=== PATIENT | female | born 1940 | race Caucasian/White ===

== ENCOUNTER 2017-07-16 10:09 | Inpatient (IN) | payer OTHER ==
[2017-06-21 09:54] VITALS: BMI 43.0
--- NOTE | 2017-06-21 10:36 | PAT Medication Instructions ---
Service Date Jun 21, 2017. Current Home Medication List Bupropion (Wellbutrin Sr), 100 MG PO BID Calcium/Vitamin D (Os-Michael 500 Plus D), 1 TAB PO QAM Duloxetine Hcl (Cymbalta), 60 MG PO QAM Ferrous Sulfate (Iron), 1 TAB PO QAM Fish Oil ([place]-3), 1 CAP PO QAM Furosemide (Lasix), 60 MG PO QAM Furosemide (Lasix), 40 MG PO QPM Lisinopril (Zestril), 20 MG PO QAM Potassium Chloride (Micro-K Ext Rel), 40 MEQ PO QAM Prednisone Tab (Prednisone), 10 MG PO Q2D Probenecid (Benemid), 250 MG PO BID [Flax Seed Oil], 2 TABLETS PO QAM [Premarin Cream], 0.625 MG PV UD Medication Instructions For Your Scheduled Surgery - Hold the following medications 2 weeks prior to surgery: [Flax Seed Oil], 2 TABLETS PO QAM Fish Oil ([place]-3), 1 CAP PO QAM - Hold the following medications the morning of surgery: Lisinopril (Zestril), 20 MG PO QAM Furosemide (Lasix), 60 MG PO QAM Ferrous Sulfate (Iron), 1 TAB PO QAM Calcium/Vitamin D (Os-Michael 500 Plus D), 1 TAB PO QAM Potassium Chloride (Micro-K Ext Rel), 40 MEQ PO QAM [Premarin Cream], 0.625 MG PV UD - Take the following medications the morning of surgery with a sip of water: Duloxetine Hcl (Cymbalta), 60 MG PO QAM Bupropion (Wellbutrin Sr), 100 MG PO BID Probenecid (Benemid), 250 MG PO BID Prednisone Tab (Prednisone), 10 MG PO Q2D (if dose falls on the day of surgery) - Take the following medications as scheduled the night before surgery: Furosemide (Lasix), 40 MG PO QPM Bupropion (Wellbutrin Sr), 100 MG PO BID Probenecid (Benemid), 250 MG PO BID If you have any questions please call us at [phone] or [phone] or [phone]
[2017-06-21 11:28] LABS: BASO % 0.2 %; BASO ABS # 0.02 K/uL (0-0.2); COMPLETE YES; HEMATOCRIT 37.4 % (37-47); IG% 0.2 %; LYMPH % 12.4 %; LYMPH ABS # 1.01 K/uL (1.2-3.4); MEAN CELL VOLUME 92.8 fL (80-100); MEAN CORPUSCULAR HEMOGLOBIN 30.3 pg (25-34); MEAN CORPUSCULAR HGB CONC 32.6 g/dl (32-36); MEAN PLATELET VOLUME 10.2 fL (7.4-10.4); MONO % 5.3 %; NEUT % 78.9 %; PLATELET COUNT 215 K/uL (130-400); RED BLOOD COUNT 4.03 M/uL (4.2-5.4); WHITE BLOOD COUNT 8.13 K/uL (4.8-10.8)
[2017-06-21 11:35] LABS: URINE APPEARANCE CLOUDY (CLEAR); URINE BILIRUBIN NEG (NEG); URINE COLOR YELLOW; URINE EPITHELIAL CELL AUTO >30 /lpf (0-5); URINE NITRITE NEG (NEG); URINE SPECIFIC GRAVITY 1.025 (1.000-1.030); UROBILINOGEN NEG (NEG); ZZUR CULT IF INDIC CLEAN CATCH NO
[2017-06-21 11:41] LABS: INR 0.9 (0.9-1.1); MANUAL MICROSCOPIC REQUIRED? NO; PARTIAL THROMBOPLASTIN RATIO 1.1; PROTHROMBIN TIME (PATIENT) 9.7 SECONDS (9.0-12.0); REVIEW REQ? YES
[2017-06-21 12:06] LABS: ESTIMATED AVERAGE GLUCOSE 128 mg/dl; HA1C FLAG Normal (Normal)
[2017-06-21 12:10] LABS: BUN/CREATININE RATIO 16.2 (10-20); CREATININE 1.2 mg/dl (0.60-1.20); POTASSIUM 3.8 mmol/L (3.5-5.1)
--- NOTE | 2017-07-15 16:23 | HISTORY & PHYSICAL EXAMINATION ---
DATE OF ADMISSION: 07/16/2017 CHIEF COMPLAINT: Chronic right knee pain. HISTORY OF PRESENT ILLNESS: This is a 77-year-old female patient of Dr. Khan, complaining of chronic knee pain. She has had a partial knee replacement in the past and has sustained chronic pain without response to conservative treatment including prednisone and cortisone. She now wishes to proceed with a right knee revision partial arthroplasty to total knee arthroplasty. PAST MEDICAL HISTORY: Hypertension, hypercholesterolemia, chronic cough, sleep apnea with the use of CPAP, muscle disease, myasthenia gravis, osteoarthritis, acid reflux, hiatal hernia, obesity, kidney disease. SOCIAL HISTORY: Nonsmoker, nondrinker. PAST SURGICAL HISTORY: Hysterectomy, gallbladder, breast reduction, both knees and 1 ankle. FAMILY HISTORY: Noncontributory. REVIEW OF SYSTEMS: The patient complains of chronic right knee pain, otherwise denies any shortness of breath, chest pain, nausea, vomiting or joint complaints. MEDICATIONS: Include estrogen, Premarin 0.625 mg as needed 2-3 times per week, prednisone 10 mg daily, bupropion 100 mg b.i.d., furosemide 40 mg b.i.d., calcium with cholecalciferol 600/400 daily, probenecid 500 mg half a tablet b.i.d., lisinopril 20 mg daily, potassium chloride 10 mEq 4 tablets daily , omega-3 fatty acids daily, Cymbalta 60 mg daily, ferrous sulfate 325 daily, flax seed oil daily. ALLERGIES: INCLUDE ALLOPURINOL, AMOXICILLIN, LYRICA, SULFA, VIOXX. PHYSICAL EXAMINATION: GENERAL: Well-developed, well-nourished 77-year-old female in no acute distress. She is alert and oriented x3 and pleasant. HEENT: Normocephalic, atraumatic. Extraocular motions are intact. Pupils are equal and reactive to light. HEART: Regular rate and rhythm, no murmurs appreciated. LUNGS: Clear. ABDOMEN: Soft, nontender, bowel sounds present. EXTREMITIES: Right knee reveals no real effusion. There is no erythema or drainage. There is no sign of infection. She has painful range of motion in the knee itself. She has medial tenderness. She has 5/5 strength. NEUROLOGIC: Neurovascularly, she is intact in her right lower extremity. DIAGNOSES: Right knee chronic pain since a partial arthroplasty in the past. She also has a history of hypertension, hypercholesterolemia, chronic cough, sleep apnea with the use of CPAP, myasthenia gravis, osteoarthritis, acid reflux, hiatal hernia, obesity, chronic kidney disease. PLAN: The patient was advised of her diagnosis. Indications, risks, benefits, and postop course have all been reviewed. The patient wished to proceed with a right revision partial arthroplasty to total knee arthroplasty. Necessary consent forms, preoperative testing and clearances will be obtained. SAMMIE
[2017-07-16] VITALS (7 sets, daily range): BP systolic 124–148; BP diastolic 69–92; PULSE 74–96; TEMP 36.3–37; O2SAT 93–97; Ht 154.9 cm; Wt 103.8 kg
[~2017-07-16] VITALS: Ht 154.9 cm; Wt 103.8 kg
[2017-07-16] MEDS: TRANEXAMIC ACID INJ 1,000 MG in SODIUM CHLORIDE 0.9% 100ML 100 ML IV SCH ×2 (06:30→13:20)
[~2017-07-16 10:09] MED LIST: ACETAMINOPHEN 500 MG TAB PO SCH; BUPIVACAINE 0.25% 30 ML VIAL ONE; BUPIVACAINE 0.5 % 5 MG/1 ML PF 10ML VIAL ONE; BUPR100T8 PO; CALC500C70 PO; CEFAZOLIN 2000 MG/60 ML D5W 60 ML IV SCH; CeleBREX 200 MG CAP PO SCH; DEXAMETHASONE 4 MG TAB PO SCH; DEXAMETHASONE SOD INJ 4 MG/ML VIAL ONE; DULO60CA44 PO; FAMOTIDINE 20 MG TAB PO SCH; FENTANYL CITRATE INJ 50 MCG/1 ML 2 ML VIAL ONE; FERR1TAB23 PO; FLAX SEED OIL PO; FRS/40 PO; GABAPENTIN 300 MG CAP PO SCH; LACTATED RINGER'S 1000ML 1,000 ML IV SCH; LACTATED RINGER'S 1000ML 500 ML IV ONE; LISI-725 PO; METOCLOPRAMIDE HCL 10 MG TAB PO SCH; MIDAZOLAM HCL 1 MG/ML 2ML VIAL ONE; OMEG10007 PO; POTA10CA28 PO; PRED10TA PO; PREMARIN CREAM PV; PROB500T8 PO; ROPIVACAINE 5MG/ML 30 ML 150 MG, BUPIVACAINE/EPINEPHR 0.5% MPF 30 ML, KETOROLAC TROMETH... INFIL SCH
[2017-07-16] MEDS: LACTATED RINGER'S 1000ML 1,000 ML IV SCH ×2 (10:52→11:06)
--- NOTE | 2017-07-16 11:04 | History & Physical Bridge Note ---
H&P Re-Evaluation Bridge Note: I have examined the patient, reviewed the History & Physical and in the interval since the performance of the History & Physical I have noted the following changes of clinical significance: No changes noted
[2017-07-16] MEDS ORDERED: POVIDONE-IODINE OP SOLN 30 ML BTL ONE (11:30)
[2017-07-16] MEDS ORDERED: ORTHO JOINT ANESTHETIC ONE (11:30)
[2017-07-16] MEDS ORDERED: BACITRACIN 50000 UNIT VIAL ONE (11:30)
[2017-07-16] MEDS ORDERED: FENTANYL CITRATE INJ 50 MCG/1 ML 2 ML VIAL IV PRN (12:30)
[2017-07-16] MEDS ORDERED: ATROPINE SULFATE 0.1 MG/ML 5ML SYR IV PRN (12:30)
[2017-07-16] MEDS ORDERED: ONDANSETRON INJ 2 MG/ML 2 ML VIAL IV PRN ×2 (12:30→16:15)
[2017-07-16] MEDS ORDERED: MEPERIDINE HCL 25 MG/ML CARP IV PRN (12:30)
[2017-07-16] MEDS ORDERED: LABETALOL HCL IV 5 MG/ML 20ML IV PRN (12:30)
[2017-07-16] MEDS ORDERED: EpHEDrine SULFATE INJ 50 MG/ML AMP IV PRN (12:30)
[2017-07-16] MEDS ORDERED: HYDROmorphone INJ 1 MG/ML SYR IV PRN (12:30)
[2017-07-16] MEDS ORDERED: VANCOMYCIN HCL 1000MG/20ML VIAL ONE (13:55)
[2017-07-16] MEDS ORDERED: MIDAZOLAM HCL 1 MG/ML 2ML VIAL ONE ×2 (14:10→15:32)
[2017-07-16] MEDS ORDERED: PROPOFOL IV EMULSION 10 MG/ML 20 ML VIAL IV ONE (14:22)
[2017-07-16] MEDS ORDERED: LABETALOL HCL IV 5 MG/ML 20ML IV ONE (14:37)
[2017-07-16] MEDS ORDERED: EpHEDrine SULFATE 50MG/5ML SYR ONE (15:26)
[2017-07-16] MEDS ORDERED: PHENYLEPHRINE 100MCG/ML 5ML SYR ONE (15:26)
[2017-07-16] MEDS ORDERED: ALUMINUM/MAGNESIUM/SIMETH (MAALOX MAX) 30 ML UDC PO PRN (16:15)
[2017-07-16] MEDS ORDERED: OXYCODONE HCL IR 5 MG TAB (IMMEDIATE RELEASE) PO PRN (16:15)
[2017-07-16] MEDS ORDERED: BISACODYL 10 MG SUPP PR PRN (16:15)
[2017-07-16] MEDS ORDERED: MoRPHine SULFATE 4 MG/ML 1 ML CARP\\VIAL IV PRN (16:15)
[2017-07-16] MEDS ORDERED: MoRPHine SULFATE 2 MG/ML CARP IV PRN (16:15)
[2017-07-16] MEDS ORDERED: MAGNESIUM HYDROXIDE SUSP 30 ML UDC PO PRN (16:15)
--- NOTE | 2017-07-16 16:30 | [facility] Post Operative Brief Note ---
Immediate Operative Summary Operative Date Jul 16, 2017. Pre-Operative Diagnosis chronic right knee pain,lateral compartment oa end stage s/p partial replacement Post-Operative Diagnosis same Procedure(s) Performed RIGHT KNEE REVISION PARTIAL ARTHROPLASTY TO TOTAL KNEE ARTHROPLASTY FEMORAL AND TIBIAL COMPAONENTS AND LATERAL RELEASE,ITB release.placement ANTIBIOTIC BEADS Surgeon Dr. Ruiz Gaston Gasoline Service Attendant Surgeon(s) Dolly Nelson PA-C Estimated Blood Loss 10ml Findings grade 4 lateral compartment oa and no loosening of components Deuce partial replacement Specimens Microbiology: 1- routine per Dr. Gaston -Right Knee Synovial Joint Fluid -gram stain -routine culture and sensitivity - anaerobic/aerobic 2. routine per Dr. Gaston -Membrane under right femoral component -gram stain -anerobic/aerobic -routine culture and sensitivity 3.routine per Dr. Gaston -membrane under right tibial component -gram stain -anerobic/aerobic -routine culture and sensitivity A. Right Knee Explants B. Right Knee Bone and Tissue Drains 2 hemovac Anesthesia spinal sedation orthomix Complication(s) None Disposition Recovery Room / PACU
--- NOTE | 2017-07-16 17:10 | Anesthesiology Progress Note ---
Anesthesia Post Op Note Date & Time Jul 16, 2017 at 17:10 Vital Signs Pain Intensity: 5 Vital Signs Past 12 Hours Date Time Temp Pulse Resp B/P (MAP) Pulse Ox O2 Delivery O2 Flow Rate FiO2 07/16/17 16:55 82 26 145/76 98 Nasal Cannula 2 07/16/17 16:45 83 25 141/79 98 Nasal Cannula 2 07/16/17 16:35 85 25 150/78 98 Oxymask 10 07/16/17 16:28 36.5 90 25 141/85 96 Oxymask 10 07/16/17 10:38 37 96 18 148/92 95 Room Air Notes Mental Status: alert / awake / arousable, participated in evaluation Pt Amnestic to Procedure: Yes Nausea / Vomiting: adequately controlled Pain: adequately controlled Airway Patency, RR, SpO2: stable & adequate BP & HR: stable & adequate Hydration State: stable & adequate Neuraxial Anesthesia: was administered, sensory block is resolving Anesthetic Complications: no major complications apparent
--- NOTE | 2017-07-16 17:41 | DIAGNOSTIC IMAGING REPORT ---
RIGHT KNEE 1 OR 2 VIEWS ROUTINE CLINICAL HISTORY: 77 years-old Female presenting with postop right knee. TECHNIQUE: Frontal and lateral views of the right knee were obtained. COMPARISON: None. FINDINGS: Postsurgical changes of total right knee arthroplasty with patellar resurfacing. Numerous small round radiodense foreign bodies in the joint space most likely medication impregnated beads. No malalignment or acute fracture. A surgical drain and skin barbra noted. Expected intra-articular gas. IMPRESSION: Expected postoperative appearance status post total right knee arthroplasty with patellar resurfacing. Electronically signed by: Cl Moulton M.D. 07/16/2017 5:40 PM Dictated Date/Time: 07/16/2017 5:39 PM
[2017-07-16] MEDS: D5W AND 1/2NSS + 20MEQ KCL 1,000 ML IV SCH (18:21)
[2017-07-16] MEDS: FERROUS GLUCONATE 324 MG TAB PO SCH (18:23)
[2017-07-16] MEDS: FUROSEMIDE 40 MG TAB PO SCH (18:36)
[2017-07-16] MEDS: ACETAMINOPHEN 500 MG TAB PO SCH (19:32)
[2017-07-16] MEDS: OXYCODONE HCL 10 MG TABCR (OXYCONTIN) PO SCH (20:50)
[2017-07-16] MEDS: SENNA 8.6 MG TAB PO SCH (20:51)
[2017-07-16] MEDS: BuPROPion SR 100 MG TABCR PO SCH (20:51)
[2017-07-16] MEDS: ASPIRIN 81 MG ECTAB PO SCH (20:52)
[2017-07-16] MEDS: DOCUSATE SODIUM 100 MG CAP PO SCH (20:52)
[2017-07-16] MEDS ORDERED: FUROSEMIDE 40 MG TAB PO SCH (21:00)
[2017-07-16] MEDS: PROBENECID 500 MG TAB PO SCH (21:22)
--- NOTE | 2017-07-16 21:26 | OPERATIVE REPORT ---
DATE OF OPERATION: 07/16/2017 INDICATION FOR PROCEDURE: The patient is a 77-year-old female patient of Dr. Kings Shepherd. She had previously had a Deuce partial bicompartmental knee replacement of the right knee. She also had a total knee replacement of the left knee. The right knee was initially doing fairly well, got progressively painful over the time due to the lateral compartment osteoarthritis. Now she has [id number] in the lateral compartment. She has failed all conservative management and wants to proceed with revision of this replacement to a total knee replacement. There is no sign of infection in her knee and there is no evidence of loosening of the components and reason for the revision is progressive lateral compartment DJD, now [id number]. PREOPERATIVE DIAGNOSIS: End-stage osteoarthritis, right knee lateral compartment, status post a bicompartmental total knee arthroplasty of the right knee. POSTOPERATIVE DIAGNOSIS: Same. PROCEDURE: Revision of a bicompartmental partial knee replacement to a total knee replacement and placement of antibiotic beads and superficial wound VAC. SURGEON: Dr. Gaston. FULL TIME BABYSITTER: JOAQUINA Simpson. ANESTHESIA: Spinal sedation, Orthomix. OPERATIVE PROCEDURE: The patient was taken to the operating under spinal sedation. She was placed supine on the operating room table. Pneumatic tourniquet was placed about her right upper thigh. Her right lower extremity was examined under anesthesia. The patient had a slight flexion contracture. She had flexion to 125 degrees. She had a valgus knee, marked [id number] crepitation in the lateral compartment. Right lower extremity was prepped and draped with ChloraPrep. Leg was elevated, exsanguinated with Esmarch bandage. Pneumatic tourniquet was raised to 300 mmHg. An anterior incision made across the knee through her previous scar. Scar demonstrates she had some widening of the scar at the most proximal aspect due to the previous wound healing issues there. She otherwise had a good looking incision. I used a previous scar for incision, extended it slightly distal and proximal for a little more exposure for the revision. Subcutaneous tissues were dissected down to the fascia. They were reflected off the fascia. Incision was made through the medial retinaculum and extended up in the mid third of the quadriceps tendon and extended down to the medial tibial tubercle. Intra-articular findings demonstrated scar tissue of the infrapatellar fat pad, lateral compartment osteophytes which were large and significant, lateral femoral condyle and tibia were completely down to [id number]. There were still some osteophytes that had formed around some of the components and other parts of the knee as well. The ACL had degenerative tearing, the PCL was still intact and there were some remnants of the medial menisci posteriorly and there were some new osteophytes around the posteromedial component. The patella component was solid. The femoral component was solid and the tibial component in the medial compartment was completely solid without any micromotion or any evidence of loosening. There was no evidence of any infection clinically. We did obtain cultures. The attention was first taken to exposure at which time, the scarred infrapatellar fat pad was resected. It released some of the capsule around the medial tibial plateau to expose the medial component. Some of the osteophytes around the component were resected. Then a partial synovectomy was performed in the gutters and the suprapatellar pouch area. The synovial bands in the lateral gutter were released. The dorsum thickened synovium between the IT band and the femoral condyles so possibly, there was some IT band symptoms going on in that area and this synovium was resected to the IT band level. The femoral component was then removed by using the ultrasound device. Cement was melted with paddle-type blade under the edges of the component laterally, superiorly, medially around the medial component and the posterior flange of the medial condyle. Then we were able to loosen the component by using a bone tamp and removing the femoral component. There was no significant bone loss. No evidence of any inflammation underneath the femoral component. I did take some of the membrane and sent it for frozen sections. Some of the old cement was removed. Some of the rimming osteophytes around the components and edges of the condyle were removed. Then we did take the tibial polyethylene off the medial component. The tibial component was still firmly attached. We had to use the Ultra-Drive ultrasound device again and removed the cement around the tibial component and removed it with stacked osteotomes. Then any cement from underlying the implant was removed. Then the femur was exposed further. Intramedullary drill hole was made into the canal. The guide latrice was placed into the femoral canal. The distal femoral cutting guide was placed in 5 degrees of valgus cut. We had to do a +2 cut on the femur, so we can get a skimmed cut on the previously cut medial femoral condyle. I made the distal femoral cut. Then we placed the alignment guide in position on the end of the femur. We had to match the epicondylar axis due to the bone loss of the posteromedial femoral condyle from the previous implant being removed from that area. We made the rotation so that the posterior cut on the medial side aligned up with the the previously cut femoral condyle. We matched the epicondylar axis. This was pinned in position and the femur was sized for a 3 femoral component, which was similar to the total knee replacement on her opposite knee. We will double check with a cut device to make sure our external rotation of the guide was flush with the anterior cut previously made on the femur. After the appropriate drill holes were made for the 5-1 cutting block, the 5-1 cutting block was placed. The anterior, posterior and chamfer cuts were made. Then attention was taken to the tibia which was subluxed. I felt we could do a primary tibial component if we made the cut flush with the previous component of the medial side of the tibial plateau alignment where the component was removed from with just skim cutting that area and then taking more off the lateral side without using an augment. So we went ahead and I used the external tibial cutting guide, aligned it in position, placed them slightly more in flexion on the guide and then went ahead and made a proximal tibial cut. Then we used the laminar collect on delivery clerk to assess ligamentous balance. There was a little more laxity medial than lateral, so we did a posterolateral release to balance the ligaments. I also had to release some of the IT band which was tight on the lateral side. After that was completed, then the 2 tibial trial was externally rotated in line with the tibial tubercle, pinned in position. The punch for the stem was used. Then the 3 femoral trial was inserted, centered. The notch cutting devices were used. A collet was placed. I felt that an 18 constrained trial gave the best range of motion and stability. We did try 21, which could get her out to full extension, but it was tight in flexion on the lateral side and I felt this was too tight with regard to flexion. The 18 constrained component appeared to fit appropriately and gave stability through full motion. Patellar tracking was assessed, but the patella did slightly track lateral and so I did a formal lateral release leaving the synovium intact and leaving the lateral geniculate intact. The patella tracked centrally at this time. Then the trials removed and the anesthetic cocktail was injected per protocol. The knee was copiously irrigated with pulsatile lavage antibiotic solution and bacitracin. The final components were then cemented with Palacos G cement. The final components were the [employer] 2.0 size 3 Oxinium femoral component, the 2 primary tibial baseplate. We used an 18 constrained polyethylene tibial insert and the patella was the patient's bone patella from the last procedure which was stable and in good position. We used Betadine soaked while the cement cured. After the cement cured, the knee was again copiously irrigated with pulsatile lavage antibiotic solution and bacitracin. Two drains were brought out laterally. We placed Stimulan antibiotic beads with vancomycin 1 gram some sprinkled in the gutters and the suprapatellar pouch prior to the closure which was performed with [id number] #1 Vicryl sutures. The knee was taken through the range of motion and the repair was secured. The patella tracked centrally. Then the more beads were placed in the subcutaneous area and the subcutaneous tissues were closed with interrupted Vicryl sutures and then the skin was closed with barbra. Superficial wound VAC was applied and the patient tolerated the procedure well. JOAQUINA Simpson, who functioned as my first coat sander through the entire procedure. She assisted in leg positioning, prepping, draping, soft tissue retraction, instrument management and she performed the fascial, subcutaneous and skin closure and will participate in the postoperative care of the patient. I attest to the content of the Intraoperative Record and any orders documented therein. Any exceptions are noted below. SAMMIE
[2017-07-16] MEDS: CEFAZOLIN IV 2,000 MG in DEXTROSE 5% 50ML 50 ML IV SCH (21:30)
--- NOTE | 2017-07-16 22:20 | Medical Consult ---
Consultation Date of Consultation: Jul 16, 2017. Attending Physician: Ruiz Gaston M.D. Reason for Consultation: Post Op Medical Management History of Present Illness 77 year old female who is s/p right TKA today by Dr. Gaston. Patient has history of a partial right knee arthroplasty however has been having increasing right knee pain, failed outpatient conservative measures and therefore presented for the planned procedure today. Post operatively the patient is doing well. She reports her pain is well controlled. She denies any numbness to the BLLE. She denies chest pain and shortness of breath. No lightheadedness, dizziness, or diaphoresis. No abdominal pain, nausea, or vomiting. She reports she has not voided yet since surgery. Past Medical/Surgical History Medical Problems: (1) Arthritis Status: Chronic (2) CKD (chronic kidney disease), stage III Status: Chronic (3) Depression with anxiety Status: Chronic (4) Gout Status: Chronic (5) HLD (hyperlipidemia) Status: Chronic (6) HTN (hypertension) Status: Chronic (7) Myasthenia gravis Status: Chronic (8) BENITA (obstructive sleep apnea) Status: Chronic (9) Spinal stenosis Status: Chronic Surgical Problems: (1) H/O bilateral breast reduction surgery Status: Chronic (2) History of hysterectomy Status: Chronic (3) History of total left knee replacement Status: Chronic (4) Hx of cholecystectomy Status: Chronic (5) S/P surgical manipulation of ankle joint Status: Chronic Family History Hypertension BROTHER Stroke FATHER Social History Smoking Status: Never Smoker Alcohol Use: none Allergies Coded Allergies: Unclassified Drugs (Verified Allergy, Mild, ANTIBIOTICS-SOB; JOINT PAIN ( CAN TAKE CEPHLOSPORINS), 07/16/17) CEFAZOLIN OK; MOSTLY ORAL ANTIBIOTICS CAUSE PROBLEMS Allopurinol (Verified Allergy, Unknown, RASH, 07/16/17) Pregabalin (Verified Allergy, Unknown, "MAKES ME FEEL WOOZY", 07/16/17) Rofecoxib (Verified Allergy, Unknown, NAUSEA AND VOMITING, 07/16/17) Sulfa Antibiotics (Verified Allergy, Unknown, Hives, Shortness of Breath, 07/16/17) Home Medications Iron (Ferrous Sulfate) 325 Mg Tab 1 Tab PO QAM Cymbalta (Duloxetine Hcl) 60 Mg Cap 60 Mg PO QAM [place]-3 (Fish Oil) 1 Ea Cap 1 Cap PO QAM Zestril (Lisinopril) 20 Mg Tab 20 Mg PO QAM Benemid (Probenecid) 500 Mg Tab 250 Mg PO BID Os-Michael 500 Plus D (Calcium/Vitamin D) Tab 1 Tab PO QAM Lasix (Furosemide) 40 Mg Tab 40 Mg PO QPM Wellbutrin Sr (Bupropion HCl) 100 Mg Ertab 100 Mg PO BID Prednisone 10 Mg Tab 10 Mg PO DAILY PT TAKES FOR JOINT PAIN. [Premarin Cream] 0.625 Mg PV UD [Flax Seed Oil] 2 Tablets PO QAM Micro-K Ext Rel (Potassium Chloride) 10 Meq Capcr 40 Meq PO QAM Lasix (Furosemide) 40 Mg Tab 60 Mg PO QAM Current Inpatient Medications Current Inpatient Medications Medications (Trade) Dose Ordered Sig/Carmela Route Start Time Stop Time Status Last Admin Dose Admin Fentanyl Citrate (Fentanyl Inj) 50 mcg Q5M PRN IV 07/16/17 12:30 07/17/17 12:29 07/16/17 16:53 50 MCG Bupropion HCl (Wellbutrin-Sr Tab) 100 mg BID PO 07/16/17 21:00 08/15/17 20:59 07/16/17 20:51 100 MG Duloxetine HCl (Cymbalta Cap) 60 mg QAM PO 07/17/17 09:00 08/16/17 08:59 Furosemide (Lasix Tab) 60 mg QAM PO 07/17/17 09:00 08/16/17 08:59 Lisinopril (Zestril Tab) 20 mg QAM PO 07/17/17 09:00 08/16/17 08:59 Potassium Chloride (Klor-Con M10) 40 meq QAM PO 07/17/17 09:00 08/16/17 08:59 Probenecid (Probenecid Tab) 250 mg BID PO 07/16/17 21:00 08/15/17 20:59 07/16/17 21:22 250 MG Morphine Sulfate (MoRPHine SULFATE INJ) 2 mg Q4HWA PRN IV 07/16/17 16:15 07/30/17 16:14 Morphine Sulfate (MoRPHine SULFATE INJ) 4 mg Q4HWA PRN IV 07/16/17 16:15 07/30/17 16:14 Potassium Chloride/Dextrose/ Sod Cl 1,000 ml @ 100 mls/hr Q10H IV 07/16/17 18:00 07/17/17 16:01 07/16/17 18:21 100 MLS/HR Cefazolin Sodium 2000 mg/Dextrose 60 ml @ 100 mls/hr Q8H IV 07/16/17 22:00 07/17/17 06:35 07/16/17 21:30 100 MLS/HR Oxycodone HCl (Roxicodone Immediate Rel Tab) 1 TABLET FOR PAIN RATING... Q4H PRN PO 07/16/17 16:15 07/30/17 16:14 Oxycodone HCl (Oxycontin Tab) 10 mg Q12 PO 07/16/17 21:00 07/30/17 20:59 07/16/17 20:50 10 MG Acetaminophen (Tylenol Tab) 1,000 mg Q8 PO 07/16/17 20:00 08/15/17 19:59 07/16/17 19:32 1,000 MG Magnesium Hydroxide (Milk Of Magnesia Susp) 30 ml Q6H PRN PO 07/16/17 16:15 08/15/17 16:14 Bisacodyl (Dulcolax Supp) 10 mg DAILY PRN DE 07/16/17 16:15 08/15/17 16:14 Senna (Senokot Tab) 17.2 mg HS PO 07/16/17 21:00 08/15/17 20:59 07/16/17 20:51 17.2 MG Docusate Sodium (coLACE CAP) 100 mg BID PO 07/16/17 21:00 08/15/17 20:59 07/16/17 20:52 100 MG Al Hydrox/Mg Hydrox/Simethicone (Maalox Max Susp) 15 ml Q4H PRN PO 07/16/17 16:15 08/15/17 16:14 Multivitamins (Multivitamin Tab) 1 tab QAM PO 07/17/17 09:00 08/16/17 08:59 Ondansetron HCl (Zofran Inj) 4 mg Q6H PRN IV 07/16/17 16:15 08/15/17 16:14 Ferrous Gluconate (Ferrous Gluconate Tab) 324 mg TIDM PO 07/16/17 17:45 08/15/17 17:59 07/16/17 18:23 324 MG Pantoprazole Sodium (Protonix Tab) 40 mg QAM PO 07/17/17 09:00 08/16/17 08:59 Aspirin (Ecotrin Tab) 81 mg BID PO 07/16/17 21:00 08/15/17 20:59 07/16/17 20:52 81 MG Furosemide (Lasix Tab) 40 mg DAILY@1700 PO 07/16/17 18:30 08/15/17 18:29 07/16/17 18:36 40 MG Prednisone (PredniSONE TAB) 10 mg DAILY PO 07/17/17 09:00 08/17/17 08:59 Review of Systems ROS per HPI, all other systems reviewed and negative Physical Exam Date Time Temp Pulse Resp B/P (MAP) Pulse Ox O2 Delivery O2 Flow Rate FiO2 07/16/17 20:29 36.4 82 16 126/72 (90) 94 Room Air 82 07/16/17 19:27 36.7 82 16 144/73 (96) 97 Nasal Cannula 2.0 07/16/17 18:30 36.5 83 18 143/76 (98) 96 Nasal Cannula 2.0 07/16/17 18:03 36.3 74 16 133/80 (97) 96 Nasal Cannula 2.0 07/16/17 17:30 94 Nasal Cannula 2.0 07/16/17 17:30 Nasal Cannula 2.0 07/16/17 17:30 36.9 78 16 124/69 (87) 94 Nasal Cannula 2.0 07/16/17 17:15 78 24 149/65 95 Nasal Cannula 2 07/16/17 17:05 36.4 70 20 101/63 95 Nasal Cannula 2 07/16/17 16:55 82 26 145/76 98 Nasal Cannula 2 07/16/17 16:45 83 25 141/79 98 Nasal Cannula 2 07/16/17 16:35 85 25 150/78 98 Oxymask 10 07/16/17 16:28 36.5 90 25 141/85 96 Oxymask 10 07/16/17 10:38 37 96 18 148/92 95 Room Air General Appearance: no apparent distress Head: normocephalic Eyes: normal inspection, sclerae normal ENT: hearing grossly normal Neck: supple, no JVD Respiratory/Chest: lungs clear, normal breath sounds, no respiratory distress Cardiovascular: regular rate, rhythm, no edema, normal peripheral pulses Abdomen/GI: normal bowel sounds, non tender, soft Extremities/Musculoskelatal: + pertinent finding (s/p right knee surgery, surgical dressing intact, drain in place draining bloody drainage, CSM checks intact to RLE) Neurologic/Psych: no motor/sensory deficits, alert, normal mood/affect, oriented x 3 Skin: normal color, warm/dry Assessment & Plan S/P RIGHT TKA - POD#0 - activity and wound care orders as per ortho - pain control with bowel regimen - PT/OT - monitor H/H for acute blood loss anemia and transfuse blood products PRN HTN - BP controlled, continue furosemide and Lisinopril CKD STAGE III - baseline creat runs in the low 1's - monitor renal function OSTEOARTHRITIS - on chronic Prednisone which has been continued GOUT - continue Probenecid ANXIETY, DEPRESSION, FIBROMYALGIA - continue Wellbutrin and Cymbalta DVT PROPHYLAXIS - ASA 81mg BID and TEDs/SCDs per ortho Thank you for this consultation. We will follow the patient with you during their hospital stay. You can reach a member of the [facility] Hospitalist Team 21/05 via pager @ . ADDENDUM: I have seen and examined the patient and agree with the assessment and plan as stated above. DO Elmer
[2017-07-17 03:29] VITALS: BP 130/76; PULSE 70; TEMP 36.8; O2SAT 94
[2017-07-17] MEDS: D5W AND 1/2NSS + 20MEQ KCL 1,000 ML IV SCH ×2 (04:02→13:34)
[2017-07-17] MEDS: CEFAZOLIN IV 2,000 MG in DEXTROSE 5% 50ML 50 ML IV SCH (05:45)
[2017-07-17] MEDS: ACETAMINOPHEN 500 MG TAB PO SCH ×3 (05:45→21:57)
[2017-07-17 06:03] LABS: HEMATOCRIT 35.3 % (37-47); MEAN CELL VOLUME 93.6 fL (80-100); MEAN CORPUSCULAR HEMOGLOBIN 30.2 pg (25-34); MEAN CORPUSCULAR HGB CONC 32.3 g/dl (32-36); MEAN PLATELET VOLUME 10.4 fL (7.4-10.4); PLATELET COUNT 236 K/uL (130-400); RED BLOOD COUNT 3.77 M/uL (4.2-5.4); WHITE BLOOD COUNT 15.24 K/uL (4.8-10.8)
[2017-07-17 06:29] LABS: BUN/CREATININE RATIO 15.7 (10-20); CALCIUM 8.6 mg/dl (8.5-10.1); CREATININE 1.6 mg/dl (0.60-1.20)
[2017-07-17 07:30] VITALS: BP 125/70; PULSE 90; TEMP 36.5; O2SAT 91
--- NOTE | 2017-07-17 07:30 | Orthopedic Progress Note ---
Orthopedic Progress Note Date of Service Jul 17, 2017. Subjective Post OP Day: 1 Reports: feeling well, pain controlled w PO medications, Denies: complaints, chest pain, SOB, nausea / vomiting, light headedness, calf pain Objective calves soft nontender, N/V intact, capillary refill less than 2 sec., dressing C /D/I, A&O x3, toes mobile Date Time Temp Pulse Resp B/P (MAP) Pulse Ox O2 Delivery O2 Flow Rate FiO2 07/17/17 03:29 36.8 70 16 130/76 (94) 94 CPAP 07/16/17 23:30 Room Air CPAP 07/16/17 23:04 36.6 80 18 132/76 (94) 93 CPAP 07/16/17 20:29 36.4 82 16 126/72 (90) 94 Room Air 82 07/16/17 19:27 36.7 82 16 144/73 (96) 97 Nasal Cannula 2.0 07/16/17 18:30 36.5 83 18 143/76 (98) 96 Nasal Cannula 2.0 07/16/17 18:03 36.3 74 16 133/80 (97) 96 Nasal Cannula 2.0 07/16/17 17:30 94 Nasal Cannula 2.0 07/16/17 17:30 Nasal Cannula 2.0 07/16/17 17:30 36.9 78 16 124/69 (87) 94 Nasal Cannula 2.0 07/16/17 17:15 78 24 149/65 95 Nasal Cannula 2 07/16/17 17:05 36.4 70 20 101/63 95 Nasal Cannula 2 07/16/17 16:55 82 26 145/76 98 Nasal Cannula 2 07/16/17 16:45 83 25 141/79 98 Nasal Cannula 2 07/16/17 16:35 85 25 150/78 98 Oxymask 10 07/16/17 16:28 36.5 90 25 141/85 96 Oxymask 10 07/16/17 10:38 37 96 18 148/92 95 Room Air Laboratory Results 24 Hours: Test 07/17/17 05:30 Hematocrit 35.3 % Hemoglobin 11.4 g/dL Assessment & Plan Assessment: POD #1, Revision partial TKA to TKA w placement antibiotic beads and wound vac. Plan: PT/ OT DVT proph- ASA D/C planning- OPPT As per medicine Inhouse Planning Pain Management: Oxycontin, Morphine, PO Tylenol, Oxy IR DVT Prophylaxis: TEDs, SCDs, ASA Discharge Planning Discharge Planning: home with oppt Pain Management: Oxycontin, PO Tylenol, Oxy IR DVT Prophylaxis: TEDs, ASA Therapy: Physical Therapy, Occupational Therapy
[2017-07-17] MEDS: DULOXETINE HCL 60 MG CAP PO SCH (08:53)
[2017-07-17] MEDS: FERROUS GLUCONATE 324 MG TAB PO SCH ×3 (08:53→18:10)
[2017-07-17] MEDS: DOCUSATE SODIUM 100 MG CAP PO SCH ×2 (08:53→20:33)
[2017-07-17] MEDS: MULTIVITAMIN TAB PO SCH (08:54)
[2017-07-17] MEDS: ASPIRIN 81 MG ECTAB PO SCH ×2 (08:54→20:33)
[2017-07-17] MEDS: POTASSIUM CHLORIDE 10 MEQ TABCR PO SCH (08:55)
[2017-07-17] MEDS: BuPROPion SR 100 MG TABCR PO SCH ×2 (08:56→20:34)
[2017-07-17] MEDS: LISINOPRIL 20 MG TAB PO SCH (08:56)
[2017-07-17] MEDS: PROBENECID 500 MG TAB PO SCH ×2 (08:56→20:35)
[2017-07-17] MEDS: FUROSEMIDE 40 MG TAB PO SCH ×3 (08:57→16:50)
--- NOTE | 2017-07-17 08:57 | Anesthesiology Progress Note ---
Anesthesia Post Op Note Date & Time Jul 17, 2017 at 08:57 Vital Signs Pain Intensity: 0.0 Vital Signs Past 12 Hours Date Time Temp Pulse Resp B/P (MAP) Pulse Ox O2 Delivery O2 Flow Rate FiO2 07/17/17 08:15 Room Air 07/17/17 07:30 36.5 90 18 125/70 (88) 91 Room Air 07/17/17 03:29 36.8 70 16 130/76 (94) 94 CPAP 07/16/17 23:30 Room Air CPAP 07/16/17 23:04 36.6 80 18 132/76 (94) 93 CPAP Notes Mental Status: alert / awake / arousable, participated in evaluation Pt Amnestic to Procedure: Yes Nausea / Vomiting: adequately controlled Pain: adequately controlled Airway Patency, RR, SpO2: stable & adequate BP & HR: stable & adequate Hydration State: stable & adequate Neuraxial Anesthesia: sensory block resolved Anesthetic Complications: no major complications apparent
[2017-07-17] MEDS: OXYCODONE HCL 10 MG TABCR (OXYCONTIN) PO SCH ×2 (09:01→20:32)
[2017-07-17] MEDS: PANTOprazole SOD 40 MG TAB PO SCH (09:28)
--- NOTE | 2017-07-17 09:30 | Clinical Documentation Query ---
CLINICAL DOCUMENTATION QUERY Dr. CHAHAL, In your clinical opinion is this patient being managed for: ( ) Acute kidney failure ( ) Not Agree ( x ) Other explanation of clinical findings (Please Explain) ( ) Unable to determine (Please Define) ( ) Need to Discuss Labs as mentioned were pre-op 1 month ago compared to post-op. patient actually getting 2 doses of Lasix a day for cardiovascular. Do not have second chemistry labs to compare. So perhaps some YUKI from diuresis vs post-op The medical record reflects the following clinical findings, treatment, and risk factors. Clinical Indicators: 77 yo female presenting for R TKA. Baseline Cr 1.20 which has trended up to Cr 1.60. Treatment: IV fluids, monitor PRP's Risk Factors: age, CKD stage III, HTN, surgery Please clarify and document your clinical opinion in the progress notes and discharge summary. Terms such as "probable", "suspected", "likely", "questionable", "possible", or "still to be ruled out" are acceptable. IF IN AGREEMENT, YOU MUST DOCUMENT ABOVE DIAGNOSTIC STATEMENT IN DAILY PROGRESS NOTES AND DISCHARGE SUMMARY. This document is not part of the patient's record. Thank You, Cheryl Ledesma, RN [phone]
[2017-07-17 12:00] VITALS: BP 136/76; PULSE 77; TEMP 36.4; O2SAT 94
--- NOTE | 2017-07-17 14:08 | Progress Note ---
Internal Med Progress Note Date of Service: Jul 17, 2017. Provider Documentation: SUBJECTIVE: Patient seen and examined while sitting on chair. Patient had completed ambulation with physical therapy. Denies changes in vision. Denies headache. Denies nausea. Denies vomiting. Denies chest pain. Denies shortness of breath. Denies abdominal pain. Denies diarrhea. Denies dysuria OBJECTIVE: General Appearance: no apparent distress Head: normocephalic Eyes: normal inspection, EOMI ENT: hearing grossly normal Neck: supple, no JVD Respiratory/Chest: lungs clear, normal breath sounds, no respiratory distress Cardiovascular: regular rate and rhythm, No JVD Abdomen/GI: normal bowel sounds, non tender, soft Extremities: surgical dressing intact and drain in place draining bloody drainage of right knee Neurologic/Psych: no motor/sensory deficits, alert, normal mood/affect, oriented x 3 Skin: normal color, warm/dry ASSESSMENT & PLAN: S/P RIGHT TKA - POD#1 - activity and wound care orders as per ortho - pain control with bowel regimen - PT/OT -Hgb > 11. Monitor H/H for acute blood loss anemia and transfuse blood products PRN HTN - BP controlled, continue Furosemide and Lisinopril -there are 2 active orders for furosemide, one for 40 mg daily in morning and 60 mg daily in evening as per med rec CKD STAGE III - baseline creat runs in the low 1's -creatinine 1.6 today, continue to monitor renal function , if creatinine continues to increase, consider cutting back on Furosemide OSTEOARTHRITIS - on chronic Prednisone which has been continued GOUT - continue Probenecid ANXIETY, DEPRESSION, FIBROMYALGIA - continue Wellbutrin and Cymbalta DVT PROPHYLAXIS - ASA 81mg BID and TEDs/SCDs per ortho Vital Signs: Date Time Temp Pulse Resp B/P (MAP) Pulse Ox O2 Delivery O2 Flow Rate FiO2 07/17/17 12:00 36.4 77 16 136/76 (96) 94 Room Air 07/17/17 08:15 Room Air 07/17/17 07:30 36.5 90 18 125/70 (88) 91 Room Air 07/17/17 03:29 36.8 70 16 130/76 (94) 94 CPAP 07/16/17 23:30 Room Air CPAP 07/16/17 23:04 36.6 80 18 132/76 (94) 93 CPAP 07/16/17 20:29 36.4 82 16 126/72 (90) 94 Room Air 82 07/16/17 19:27 36.7 82 16 144/73 (96) 97 Nasal Cannula 2.0 07/16/17 18:30 36.5 83 18 143/76 (98) 96 Nasal Cannula 2.0 07/16/17 18:03 36.3 74 16 133/80 (97) 96 Nasal Cannula 2.0 07/16/17 17:30 94 Nasal Cannula 2.0 07/16/17 17:30 Nasal Cannula 2.0 07/16/17 17:30 36.9 78 16 124/69 (87) 94 Nasal Cannula 2.0 07/16/17 17:15 78 24 149/65 95 Nasal Cannula 2 07/16/17 17:05 36.4 70 20 101/63 95 Nasal Cannula 2 07/16/17 16:55 82 26 145/76 98 Nasal Cannula 2 07/16/17 16:45 83 25 141/79 98 Nasal Cannula 2 07/16/17 16:35 85 25 150/78 98 Oxymask 10 07/16/17 16:28 36.5 90 25 141/85 96 Oxymask 10 Lab Results: Results Past 24 Hours Test 07/17/17 05:30 Range/Units White Blood Count 15.24 4.8-10.8 K/uL Red Blood Count 3.77 4.2-5.4 M/uL Hemoglobin 11.4 12.0-16.0 g/dL Hematocrit 35.3 37-47 % Mean Corpuscular Volume 93.6 80-100 fL Mean Corpuscular Hemoglobin 30.2 25-34 pg Mean Corpuscular Hemoglobin Concent 32.3 32-36 g/dl RDW Standard Deviation 49.1 36.4-46.3 fL RDW Coefficient of Variation 14.3 11.5-14.5 % Platelet Count 236 130-400 K/uL Mean Platelet Volume 10.4 7.4-10.4 fL Sodium Level 141 136-145 mmol/L Potassium Level 4.0 3.5-5.1 mmol/L Chloride Level 107 98-107 mmol/L Carbon Dioxide Level 24 21-32 mmol/L Anion Gap 10.0 3-11 mmol/L Blood Urea Nitrogen 25 7-18 mg/dl Creatinine 1.60 0.60-1.20 mg/dl Est Creatinine Clear Calc Drug Dose 32.1 ml/min Estimated GFR () 35.4 Estimated GFR (Non- 30.5 BUN/Creatinine Ratio 15.7 10-20 Random Glucose 117 70-99 mg/dl Calcium Level 8.6 8.5-10.1 mg/dl Microbiology Results 07/16/17 Gram Stain - Final, Resulted 07/16/17 Bacterial Culture - Preliminary, Resulted NO GROWTH TO DATE. 07/16/17 Gram Stain - Final, Resulted 07/16/17 Bacterial Culture - Preliminary, Resulted NO GROWTH TO DATE. 07/16/17 Gram Stain - Final, Resulted 07/16/17 Bacterial Culture - Preliminary, Resulted NO GROWTH TO DATE.
[2017-07-17 15:17] VITALS: BP 124/73; PULSE 104; TEMP 36.7; O2SAT 92
[2017-07-17] MEDS: SENNA 8.6 MG TAB PO SCH (20:34)
[2017-07-17 23:09] VITALS: BP 148/75; PULSE 94; TEMP 36.4; O2SAT 95
[2017-07-18] MEDS: ACETAMINOPHEN 500 MG TAB PO SCH (05:46)
[2017-07-18 06:01] VITALS: BP 161/91; PULSE 80; TEMP 36.3; O2SAT 96
[2017-07-18] MEDS: DOCUSATE SODIUM 100 MG CAP PO SCH (07:27)
[2017-07-18] MEDS: ASPIRIN 81 MG ECTAB PO SCH (07:27)
[2017-07-18] MEDS: DULOXETINE HCL 60 MG CAP PO SCH (07:27)
[2017-07-18] MEDS: FERROUS GLUCONATE 324 MG TAB PO SCH (07:27)
[2017-07-18] MEDS: POTASSIUM CHLORIDE 10 MEQ TABCR PO SCH (07:28)
[2017-07-18] MEDS: MULTIVITAMIN TAB PO SCH (07:30)
[2017-07-18] MEDS: OXYCODONE HCL 10 MG TABCR (OXYCONTIN) PO SCH (07:31)
[2017-07-18] MEDS: FUROSEMIDE 40 MG TAB PO SCH (07:31)
[2017-07-18] MEDS: BuPROPion SR 100 MG TABCR PO SCH (07:33)
[2017-07-18] MEDS: LISINOPRIL 20 MG TAB PO SCH (07:33)
[2017-07-18] MEDS: PANTOprazole SOD 40 MG TAB PO SCH (07:33)
[2017-07-18] MEDS: PROBENECID 500 MG TAB PO SCH (07:33)
[2017-07-18] MEDS ORDERED: OXYSR10 PO (08:46)
[2017-07-18] MEDS ORDERED: ACET-24 PO (08:46)
[2017-07-18] MEDS ORDERED: ONDA8TAB6 PO (08:46)
[2017-07-18] MEDS ORDERED: ASPEC81 PO (08:46)
[2017-07-18] MEDS ORDERED: RXC5 PO (08:46)
[2017-07-18] MEDS ORDERED: SNK PO (08:46)
--- NOTE | 2017-07-18 08:48 | Discharge Instructions ---
Discharge Instructions Date of Service Jul 18, 2017. Admission Reason for Admission: Right Knee Osteoarthritis Discharge Discharge Diagnosis / Problem: SP RIGHT TKA Discharge Goals Goal(s): Decrease discomfort, Improve function, Increase independence Activity Recommendations Activity Limitations: per Instructions/Follow-up section . Instructions / Follow-Up Instructions / Follow-Up ACTIVITY RECOMMENDATIONS: SELF CARE INSTRUCTIONS AFTER TOTAL KNEE REPLACEMENT A. You may need to continue a physical therapy program after discharge from the hospital. There are several options available to you. Your doctor will assist you in selecting the best one for you. 1. An out-patient facility 2 to 3 times a week for therapy or home therapy. 2. Continue working on all exercises taught to you in the hospital. Your goals should be to increase bending of your knee to 90 degrees and beyond and to fully straighten your knee. B. You may progress at your own pace from walking with a walker or crutches to a cane; then to no assistive devices. C. Make walking a part of your daily routine. Be up as much as comfortable with rest periods throughout the day. Rest with leg elevation is very important. Use the ice wrap frequently for the first 3-4 weeks. D. There are no restrictions on activities. You may ride in a car, shop, participate in power generation engineer and all social activities. E. Wear the long elastic stockings (JENNIFER hose) 20 hours a day for 2 weeks after surgery. They can be removed several times a day for laundering and for a bath. F. You may shower, no tub baths until cleared by your doctor. SPECIAL CARE INSTRUCTIONS: VERY IMPORTANT TO READ AND REVIEW A. There are a few signs you need to watch for after you are home. Call [facility] [place] if you notice any of the followin. Increased severe knee pain. Some pain is expected especially when you exercise. 2. Increased swelling in your leg or knee; pain or swelling of the calf muscle in either lower leg. 3. Any fluid drainage from the incision. 4. Shortness of breath or chest pain. B. Please call [facility] [place] at if you have any concerns or questions about your operation or recovery. The doctor or his nurse will return your call promptly. C. You must take antibiotics before dental work, bladder, bowel or other surgery. Your doctor will provide you with a permanent care to carry describing this precaution. IMPORTANT: * REMEMBER TO TAKE ASPIRIN, 81 MG, TWICE DAILY FOR 4 WEEKS UNLESS OTHERWISE DIRECTED. THIS IS YOUR BLOOD THINNER. * HIGH RISK PATIENTS MAY BE PRESCRIBED A STRONGER BLOOD THINNER. THIS WILL BE PROVIDED AT DISCHARGE. * CALL IF INCREASED PAIN, REDNESS, DRAINAGE OR FEVER GREATER THAT 101. * WEAR JENNIFER HOSE 20 HOURS PER DAY FOR 2 WEEKS. Prevena- This is a large suction dressing covering your incision. This will help pull any excess drainage from the wound and allow your incision to heal properly. You may shower with this if you can keep the unit outside of the shower. If any bleeding or leakage is noted please call your doctor's office. This will remain on your incision for 7 days and then should be removed. This can be done yourself or by the home nursing staff if applicable. The entire unit is disposable once removed. Once removed, keep incision clean and dry. If redness or drainage is noted, please call your surgeon. FOLLOW UP VISIT: If appointment is not already scheduled: Please call [facility] [place] to make a follow-up appointment for 2 weeks after your surgery at . Current Hospital Diet Patient's current hospital diet: Regular Diet Discharge Diet Recommended Diet: Regular Diet Procedures Procedures Performed: RIGHT KNEE REVISION PARTIAL ARTHROPLASTY TO TOTAL KNEE ARTHROPLASTY FEMORAL AND TIBIAL COMPAONENTS AND LATERAL RELEASE,ITB release.placement ANTIBIOTIC BEADS Pending Studies Studies pending at discharge: no Laboratory Results Hemoglobin A1c Test 06/21/17 10:50 Range/Units Estimated Average Glucose 128 mg/dl Hemoglobin A1c 6.1 H 4.5-5.6 % Medical Emergencies . Who to Call and When: Medical Emergencies: If at any time you feel your situation is an emergency, please call 911 immediately. . Non-Emergent Contact Non-Emergency issues call your: Surgeon . "Provider Documentation" section prepared by Dolly Nelson. . VTE Core Measure Inpt VTE Proph given/why not?: Other Anticoagulation, T.E.D. Stockings, SCD's
[2017-07-18 09:37] VITALS: BP 161/91; PULSE 80; TEMP 36.3; O2SAT 96
--- NOTE | 2017-07-18 23:46 | DISCHARGE SUMMARY ---
DISCHARGE DIAGNOSIS: Degenerative joint disease, right knee. SECONDARY DIAGNOSIS: None. CONSULTS: Dr. Anaya. COMPLICATIONS: None. PROCEDURE: The patient underwent a right total knee arthroplasty with Dr. Gaston on 07/16/2017. BRIEF HISTORY: Please see previously dictated history and physical. HOSPITAL SUMMARY: The patient was admitted on the above day for the above procedure. Procedure went without complication. Postop day 1, the patient was feeling well without complaints. She denied chest pain or shortness of breath. Vital signs were stable. She was afebrile. Dressing was clean, dry and intact. She was neurovascularly intact. Calves were soft and nontender. Hemoglobin was 11.4. The patient began physical therapy per protocol. On postop day 2, the patient continued to improve. She denied chest pain or shortness of breath. Vital signs were stable. She was afebrile. Incision was clean, dry and intact. She was neurovascularly intact. Calves were soft and nontender. She had a Prevena dressing. Cultures were no growth to date. The patient continued to progress with physical therapy and was discharged home with outpatient, physical therapy later that day. For further review, please see the chart. Lab, x-ray data and discharge instructions as per chart.
== END 2017-07-18 11:13 | disposition home or self-care (01) | DRG 467 ==
LOC: C.ACU 10:09 → C.3E 10:51 → ENRESERV 17:15
PROVIDERS: ADMIT Orthopaedic Surgery Sports Medicine; ATTEND Orthopaedic Surgery Sports Medicine
PROC: 0SPV0JZ Removal of Synthetic Substitute from Right Knee Joint, Tibial Surface, Open Approach (ICD-10-PCS; principal; 2017-07-16 12:45)
PROC: 0SRC0J9 Replacement of Right Knee Joint with Synthetic Substitute, Cemented, Open Approach (ICD-10-PCS; principal; 2017-07-16 12:45)
PROC: 0SPT0JZ Removal of Synthetic Substitute from Right Knee Joint, Femoral Surface, Open Approach (ICD-10-PCS; principal; 2017-07-16 12:45)
DX: M17.11 Unilateral primary osteoarthritis, right knee (principal); Z68.41 Body mass index [BMI] 40.0-44.9, adult; I12.9 Hypertensive chronic kidney disease with stage 1 through stage 4 chronic kidney disease, or unspecified chronic kidney disease; E78.00 Pure hypercholesterolemia, unspecified; G47.30 Sleep apnea, unspecified; K21.9 Gastro-esophageal reflux disease without esophagitis; N18.3 Chronic kidney disease, stage 3 (moderate); E66.9 Obesity, unspecified; M10.9 Gout, unspecified; F32.9 Major depressive disorder, single episode, unspecified; F41.9 Anxiety disorder, unspecified; M79.7 Fibromyalgia; Z79.52 Long term (current) use of systemic steroids; Z79.899 Other long term (current) drug therapy; Z96.652 Presence of left artificial knee joint